=== PATIENT | female | born 1990 | race Caucasian/White ===

== ENCOUNTER 2020-10-10 19:27 | Emergency (ER) | payer BC ==
[~2020-10-10] VITALS: Ht 167.6 cm; Wt 54.4 kg
[2020-10-10 19:30] VITALS: BP_SYST 117
[2020-10-10 20:54] VITALS: BP_SYST 125
== END 2020-10-10 21:04 | disposition home or self-care (01) ==
LOC: SED 19:27
DX: R07.89 Other chest pain (principal)
CPT/HCPCS: 71045; 81025; 93005; 99283